=== PATIENT | female | born 1935 | race Caucasian/White ===

== ENCOUNTER → 2019-01-18 | Outpatient (CLI) | payer MEDICARE ==
[~2019-01-18] MED LIST: ATOR10TA69 PO; ESOM40CA PO; ESTR1TAB17 PO; HYDR12.54 PO; IRBE300T19 PO; LEVO88TA4 PO
== END | disposition home or self-care (01) ==
LOC: RAH 08:39
PROVIDERS: ATTEND Family Medicine
DX: K21.9 Gastro-esophageal reflux disease without esophagitis (principal)
CPT/HCPCS: 74240

== ENCOUNTER 2019-01-20 16:31 | Observation (INO) | payer MEDICARE ==
[~2019-01-20] VITALS: Ht 167.6 cm; Wt 62.1 kg
[2019-01-20 17:21] LABS: BASOPHILS % (AUTO) 0.5 % (0.0-5.0); EOSINOPHILS % (AUTO) 0.8 % (0.0-8.0); LYMPHOCYTES % (AUTO) 15.2 % (21.0-51.0); MEAN CORPUSCULAR HEMOGLOBIN 29.3 pg (27.0-33.0); MEAN CORPUSCULAR HGB CONC 34.2 g/dL (32.0-36.0); MEAN CORPUSCULAR VOLUME 85.8 fL (79-99); MONOCYTES % (AUTO) 5.1 % (3.0-13.0); NEUTROPHILS % (AUTO) 78.4 % (40.0-77.0); PLATELET COUNT (AUTO) 147 K/uL (130-400); RED BLOOD CELL COUNT(AUTO) 4.43 MIL/uL (4.00-5.50); RED CELL DISTRIBUTION WIDTH 13.9 % (11.0-15.5); WHITE BLOOD COUNT (AUTO) 6.5 K/uL (4.8-10.8)
[2019-01-20 17:35] LABS: CREATININE 1.3 mg/dL (0.5-1.5); POTASSIUM 3.1 mmol/L (3.5-5.1)
[2019-01-20 17:37] LABS: INR 1.02 (0.85-1.15); PARTIAL THROMBOPLASTIN TIME 19.8 SEC (26.3-35.5); PROTHROMBIN TIME 10.7 SEC (9.6-11.6)
[2019-01-20 17:39] LABS: ALBUMIN 4.1 g/dL (3.5-5.0); BILIRUBIN,TOTAL 0.6 mg/dL (0.2-1.0); TOTAL PROTEIN, SERUM 8.1 g/dL (6.0-8.3)
[2019-01-20 18:16] LABS: B-TYPE NATRIURETIC PEPTIDE 63 pg/mL (0-100)
[2019-01-20] MEDS ORDERED: POTASSIUM CHLORIDE 10% ELIXIR 20 MEQ/15 ML UDCUP ONE (19:04)
[2019-01-20] MEDS ORDERED: ONDANSETRON HCL 4 MG/2 ML VIAL IVP PRN (19:30)
[2019-01-20] MEDS ORDERED: ACETAMINOPHEN 325 MG TAB PO PRN (19:30)
[2019-01-20 22:08] VITALS: BP 155/77
[2019-01-20] MEDS ORDERED: ATOR10TA69 PO (22:56)
[2019-01-20] MEDS ORDERED: ESTR1TAB17 PO (22:56)
[2019-01-20] MEDS ORDERED: IRBE300T19 PO (22:56)
[2019-01-20] MEDS ORDERED: ESOM40CA PO (22:56)
[2019-01-20] MEDS ORDERED: HYDR12.54 PO (22:56)
[2019-01-20] MEDS ORDERED: LEVO88TA4 PO (22:56)
[2019-01-21] VITALS (7 sets, daily range): BP systolic 138–155; BP diastolic 62–79
[2019-01-21 03:21] LABS: BASOPHILS % (AUTO) 0.3 % (0.0-5.0); EOSINOPHILS % (AUTO) 1.2 % (0.0-8.0); HEMATOCRIT 33.5 % (36-48); LYMPHOCYTES % (AUTO) 16.9 % (21.0-51.0); MEAN CORPUSCULAR HEMOGLOBIN 29.7 pg (27.0-33.0); MEAN CORPUSCULAR HGB CONC 34.7 g/dL (32.0-36.0); MEAN CORPUSCULAR VOLUME 85.5 fL (79-99); MONOCYTES % (AUTO) 7.7 % (3.0-13.0); NEUTROPHILS % (AUTO) 73.9 % (40.0-77.0); PLATELET COUNT (AUTO) 131 K/uL (130-400); RED BLOOD CELL COUNT(AUTO) 3.92 MIL/uL (4.00-5.50); RED CELL DISTRIBUTION WIDTH 14.2 % (11.0-15.5); WHITE BLOOD COUNT (AUTO) 7.1 K/uL (4.8-10.8)
[2019-01-21 03:28] LABS: POTASSIUM 3.5 mmol/L (3.5-5.1)
[2019-01-21 03:32] LABS: BILIRUBIN,TOTAL 0.3 mg/dL (0.2-1.0); MAGNESIUM 0.9 mg/dL (1.80-2.40); PHOSPHORUS 3.5 mg/dL (2.5-4.9); TOTAL PROTEIN, SERUM 6.2 g/dL (6.0-8.3)
[2019-01-21] MEDS: LEVOTHYROXINE 88 MCG TABLET PO SCH (06:30)
[2019-01-21] MEDS ORDERED: LIDOCAINE HCL-MPF 1% 2ML VIAL IV PRN (07:00)
[2019-01-21] MEDS ORDERED: POTASSIUM CHLORIDE 20 MEQ ERTAB PO PRN (07:00)
[2019-01-21] MEDS ORDERED: POTASSIUM CHLORIDE 20MEQ/100ML 100 ML IV PRN (07:00)
[2019-01-21] MEDS ORDERED: POTASSIUM CHLORIDE 10% ELIXIR 20 MEQ/15 ML UDCUP PO PRN (07:00)
[2019-01-21] MEDS: MAGNESIUM 2GM PREMIX 50ML 50 ML IV PRN (07:04)
[2019-01-21] MEDS: ESTRADIOL 0.5 MG TABLET PO SCH (09:00)
[2019-01-21] MEDS ORDERED: HYDROCHLOROTHIAZIDE 25 MG TABLET PO SCH (09:00)
[2019-01-21] MEDS: PANTOPRAZOLE SODIUM 40 MG TABLET.DR PO SCH ×2 (09:00→20:44)
[2019-01-21] MEDS: LOSARTAN 100 MG TABLET PO SCH (09:00)
--- NOTE | 2019-01-21 12:50 | NUR ---
C.T. SCAN DONE, WITH RESULTS PENDING . . CALL LIGHT IN REACH
--- NOTE | 2019-01-21 18:44 | NUR ---
CM NOTE status clarification attempted with Gogo ZHANG. Pt to remain OBS plan for d/c tomorrow.
[2019-01-21] MEDS: SODIUM CHLORIDE 0.9% 1000ML 1,000 ML IV SCH (20:43)
--- NOTE | 2019-01-21 20:44 | NUR ---
HOME MEDICATION AT BEDSIDE PATIENT SEEN AND ASSESSED. PT DENIED ANY DYSPNEA NOR CHEST PAIN. NOR LIGHTHEADEDNESS NOR NAUSEA NOR VOMITING NOR ANY OTHER COMPLAINTS OF PAIN. PATIENT REFUSED TO TAKE HER THE MEDICATION FROM HOSPITAL, SHE SAID SHE IS GOING TO TAKE HER OWN MEDICATION AT BEDSIDE. PT TOOK ATORVASTATIN AND PROTONIX TABLET AT BEDSIDE. COMFORT MEASURES RENDERED. FALL RISK PRECAUTION ASSISTED AT ALL TIMES WHEN GETTING OUT OF BED
[2019-01-21] MEDS ORDERED: ATORVASTATIN CALCIUM 10 MG TABLET PO SCH (21:00)
[2019-01-22] VITALS: BP 141/72
[2019-01-22] MEDS ORDERED: TRAZODONE HCL 50 MG TAB PO PRN
[2019-01-22] MEDS ORDERED: TRAZODONE HCL 50 MG TAB ONE (00:06)
[2019-01-22] MEDS: SODIUM CHLORIDE 0.9% 1000ML 1,000 ML IV SCH (01:50)
[2019-01-22 04:00] VITALS: BP 125/66
[2019-01-22 06:21] LABS: HEMATOCRIT 32.5 % (36-48); MEAN CORPUSCULAR HEMOGLOBIN 29.5 pg (27.0-33.0); MEAN CORPUSCULAR HGB CONC 34.4 g/dL (32.0-36.0); MEAN CORPUSCULAR VOLUME 85.6 fL (79-99); PLATELET COUNT (AUTO) 142 K/uL (130-400); RED CELL DISTRIBUTION WIDTH 13.7 % (11.0-15.5); WHITE BLOOD COUNT (AUTO) 4.8 K/uL (4.8-10.8)
[2019-01-22 06:29] LABS: MAGNESIUM 1.5 mg/dL (1.80-2.40); POTASSIUM 4.2 mmol/L (3.5-5.1)
[2019-01-22] MEDS: LEVOTHYROXINE 88 MCG TABLET PO SCH (06:30)
[2019-01-22] MEDS: MAGNESIUM 2GM PREMIX 50ML 50 ML IV PRN (07:36)
[2019-01-22 08:00] VITALS: BP 114/53
[2019-01-22] MEDS: PANTOPRAZOLE SODIUM 40 MG TABLET.DR PO SCH (09:00)
[2019-01-22] MEDS: ESTRADIOL 0.5 MG TABLET PO SCH (09:00)
[2019-01-22] MEDS ORDERED: POLYETHYLENE GLYCOL 3350 17 GM POWD.PACK PO SCH (09:00)
[2019-01-22] MEDS ORDERED: ASPIRIN 81MG TAB.CHEW PO SCH (09:00)
[2019-01-22] MEDS: LOSARTAN 100 MG TABLET PO SCH (09:00)
[2019-01-22 12:00] VITALS: BP 131/70
[2019-01-22 12:10] VITALS: BP 159/86
--- NOTE | 2019-01-22 13:00 | NUR ---
DR. LONG HERE AND REVIEW CARE .AND SPOKE WITH PT .AND DISCHARGE ORDERS .
--- NOTE | 2019-01-22 13:27 | NUR ---
DCP CM met with pt discussed dc plans. Pt is independent prior to admission, lives at home w/spouse. Pt has a shower chair, cane. Denies any equipments/services. Feels safe to go back home, spouse able to assist with transportation and needs. DC plan to home once stable. CM to cont to follow up. Addendum: 01/22/19 at 1331 by KASH DOUGLASS LVN CM Amended: Links added.
--- NOTE | 2019-01-22 13:50 | NUR ---
DISCHARGE SUMMARY RE VIEW WITH PT. . PT SL TO HER LFA WAS DC, WITH NO HEMATOMA OR REDNESS NOTED A SM PRESSURE . DRSG APPLICATION . .
== END 2019-01-22 14:00 | disposition home or self-care (01) ==
LOC: EDH 16:31 → EDHIP 19:08 → 3DH 22:02
PROVIDERS: ADMIT Internal Medicine Critical Care Medicine; ATTEND Internal Medicine Critical Care Medicine
DX: R55 Syncope and collapse (principal); E87.6 Hypokalemia; E83.42 Hypomagnesemia; E86.0 Dehydration; I10 Essential (primary) hypertension; E03.9 Hypothyroidism, unspecified; I34.1 Nonrheumatic mitral (valve) prolapse; E05.00 Thyrotoxicosis with diffuse goiter without thyrotoxic crisis or storm; K21.9 Gastro-esophageal reflux disease without esophagitis; E89.0 Postprocedural hypothyroidism; E78.5 Hyperlipidemia, unspecified; R10.9 Unspecified abdominal pain; Z90.89 Acquired absence of other organs; E87.1 Hypo-osmolality and hyponatremia; Z79.899 Other long term (current) drug therapy; Z79.890 Hormone replacement therapy; Z88.0 Allergy status to penicillin; Z88.1 Allergy status to other antibiotic agents; Z88.8 Allergy status to other drugs, medicaments and biological substances
CPT/HCPCS: 36415 ×3; 70450; 71045; 74176; 80048; 80053 ×2; 82550; 83735 ×3; 83880; 84100; 84443; 84484 ×4; 85025 ×2; 85027; 85610; 85730; 93005; 93880; 96361 ×2; 96365; 96366 ×2; 99284; G0378 ×38; J3475 ×2

== ENCOUNTER → 2021-10-19 | Outpatient (CLI) | payer MEDICARE ==
[~2021-10-19] MED LIST changes: +IRBE300T18 PO; -IRBE300T19 PO
== END | disposition home or self-care (01) ==
LOC: SHCH 08:41
PROVIDERS: ATTEND Internal Medicine Cardiovascular Disease
DX: I08.0 Rheumatic disorders of both mitral and aortic valves (principal); I11.9 Hypertensive heart disease without heart failure
CPT/HCPCS: 93306

== ENCOUNTER → 2022-09-28 | Outpatient (CLI) | payer MEDICARE | END | disposition home or self-care (01) | LOC: SHCH 12:27 | PROVIDERS: ATTEND Internal Medicine Cardiovascular Disease | DX: I35.0 Nonrheumatic aortic (valve) stenosis (principal) | CPT/HCPCS: 93306 ==

== ENCOUNTER 2022-10-28 05:57 | Day surgery (SDC) | payer MEDICARE ==
[2022-10-26 11:31] LABS: BASOPHILS # (AUTO) 0.02 K/uL (0.00-0.20); BASOPHILS % (AUTO) 0.4 % (0.0-5.0); EOSINOPHILS # (AUTO) 0.08 K/uL (0.00-0.70); EOSINOPHILS % (AUTO) 1.7 % (0.0-8.0); HEMATOCRIT 36.3 % (36-48); IMMATURE GRANULOCYTE ABSOLUTE 0.01 K/uL (0-1); LYMPHOCYTES # (AUTO) 1.3 K/uL (1.0-4.8); LYMPHOCYTES % (AUTO) 27.4 % (21.0-51.0); MEAN CORPUSCULAR HEMOGLOBIN 28.2 pg (27.0-33.0); MEAN CORPUSCULAR VOLUME 88.3 fL (79-99); MONOCYTES # (AUTO) 0.4 K/uL (0.1-1.0); MONOCYTES % (AUTO) 7.4 % (3.0-13.0); NEUTROPHILS % (AUTO) 62.9 % (40.0-77.0); PLATELET COUNT (AUTO) 139 K/uL (130-400); RED BLOOD CELL COUNT(AUTO) 4.11 MIL/uL (4.00-5.50); RED CELL DISTRIBUTION WIDTH 13.6 % (11.0-15.5); WHITE BLOOD COUNT (AUTO) 4.7 K/uL (4.8-10.8)
[2022-10-26 11:32] LABS: APPEARANCE,URINE CLEAR (CLEAR); BILIRUBIN,URINE NEGATIVE (NEGATIVE); GLUCOSE, URINE (UA) NEGATIVE (NEGATIVE); KETONES,URINE NEGATIVE (NEGATIVE); LEUKOCYTE ESTERASE ,URINE NEGATIVE Leu/uL (NEGATIVE); NITRATE,URINE NEGATIVE (NEGATIVE); OCCULT BLOOD,URINE NEGATIVE (NEGATIVE); PH,URINE 6.5 (5.0-8.0); PROTEIN,URINE NEGATIVE (NEGATIVE); UROBILINOGEN,URINE 0.2 mg/dL (0.2-1.0)
[2022-10-26 11:34] LABS: ADD UA MICROSCOPIC NO; COLOR,URINE YELLOW (YELLOW)
[2022-10-26 11:49] LABS: CREATININE 1.2 mg/dL (0.5-1.5); INR 0.95 (0.85-1.15); POTASSIUM 4.4 mmol/L (3.5-5.1); PROTHROMBIN TIME 11.1 SEC (9.6-11.6)
[2022-10-26 11:50] VITALS: BP_SYST 187; BP_SYST 190; BP_DIAS 76; BP_DIAS 86; PULSE 66; RESP 18
[2022-10-26 11:50] LABS: PARTIAL THROMBOPLASTIN TIME 27.3 SEC (26.3-35.5)
[2022-10-26 12:05] LABS: B-TYPE NATRIURETIC PEPTIDE 119 pg/mL (0-100)
[~2022-10-28] VITALS: Ht 167.6 cm; Wt 61.2 kg
[2022-10-28] VITALS (12 sets, daily range): BP systolic 107–179; BP diastolic 49–74; PULSE 69–83; RESP 15–16
[2022-10-28] MEDS ORDERED: SPIR25TA6 PO (06:52)
[2022-10-28] MEDS ORDERED: LIDOCAINE HCL 400MG/20ML VIAL ONE (07:13)
[2022-10-28] MEDS ORDERED: BIVALIRUDIN 250 MG/VIAL IV ONE (07:13)
[2022-10-28] MEDS ORDERED: FENTANYL CITRATE PF 50 MCG/1 ML 2ML VIAL ONE (07:13)
[2022-10-28] MEDS ORDERED: MIDAZOLAM HCL 1 MG/ML 2ML VIAL ONE (07:13)
[2022-10-28] MEDS ORDERED: NITROGLYCERIN 50MG VIAL ONE (07:14)
[2022-10-28] MEDS ORDERED: IOHEXOL-350 50ML VIAL IV ONE (07:14)
[2022-10-28] MEDS ORDERED: IOHEXOL 350 MG/ML 100ML INFUS..BTL IV ONE (07:14)
[2022-10-28] MEDS ORDERED: 0.9%NACL 1000ML 1,000 ML IV ONE (07:21)
[2022-10-28] MEDS ORDERED: LABETALOL 20MG SYG IV ONE (08:14)
[2022-10-28] MEDS ORDERED: HYDRALAZINE 20MG/ML VIAL ONE (08:14)
[2022-10-28] MEDS ORDERED: IOHEXOL-350 75 ML VIAL IV ONE (08:55)
[2022-10-28] MEDS ORDERED: 0.9%NACL 1000ML 1,000 ML IV SCH (09:30)
== END 2022-10-28 15:00 | disposition home or self-care (01) ==
LOC: DAH 05:57
PROVIDERS: ATTEND Internal Medicine Cardiovascular Disease
DX: I35.0 Nonrheumatic aortic (valve) stenosis (principal); I25.10 Atherosclerotic heart disease of native coronary artery without angina pectoris; I27.20 Pulmonary hypertension, unspecified; I47.1 Supraventricular tachycardia; I11.0 Hypertensive heart disease with heart failure; I50.32 Chronic diastolic (congestive) heart failure; E78.5 Hyperlipidemia, unspecified; Z79.890 Hormone replacement therapy; Z79.899 Other long term (current) drug therapy; Z96.651 Presence of right artificial knee joint; Z88.8 Allergy status to other drugs, medicaments and biological substances
CPT/HCPCS: 80048; 83880; 85025; 85610; 85730; 81003; 36415; 71045; 93005; 93460; C1769; C1894 ×3; C1760; C1893; J3010; J3490 ×2; J7030; J0360; J2250; J1644; Q9967 ×3; A4222; A4221; A4663; A4216; A4606; Q9965; A4223 ×3; 99156; 99157; J0583

== ENCOUNTER → 2023-01-06 | Outpatient (CLI) | payer MEDICARE ==
[~2023-01-06] MED LIST changes: +AEC81 PO; -ATOR10TA69 PO; -ESOM40CA PO; -ESTR1TAB17 PO; -HYDR12.54 PO; +SPIR25TA6 PO
[2023-01-06 16:20] LABS: BASOPHILS # (AUTO) 0.08 K/uL (0.00-0.20); BASOPHILS % (AUTO) 1.2 % (0.0-5.0); EOSINOPHILS # (AUTO) 0.46 K/uL (0.00-0.70); EOSINOPHILS % (AUTO) 6.8 % (0.0-8.0); HEMATOCRIT 37.5 % (36-48); IMMATURE GRANULOCYTE ABSOLUTE 0.03 K/uL (0-1); LYMPHOCYTES # (AUTO) 1.8 K/uL (1.0-4.8); LYMPHOCYTES % (AUTO) 26.8 % (21.0-51.0); MEAN CORPUSCULAR HEMOGLOBIN 28.2 pg (27.0-33.0); MEAN CORPUSCULAR HGB CONC 30.9 g/dL (32.0-36.0); MONOCYTES # (AUTO) 0.5 K/uL (0.1-1.0); MONOCYTES % (AUTO) 7.5 % (3.0-13.0); NEUTROPHILS # (AUTO) 3.9 K/uL (1.8-7.7); NEUTROPHILS % (AUTO) 57.3 % (40.0-77.0); PLATELET COUNT (AUTO) 199 K/uL (130-400); RED BLOOD CELL COUNT(AUTO) 4.12 MIL/uL (4.00-5.50); RED CELL DISTRIBUTION WIDTH 15.7 % (11.0-15.5); WHITE BLOOD COUNT (AUTO) 6.8 K/uL (4.8-10.8)
[2023-01-06 16:47] LABS: ALBUMIN 3.5 g/dL (3.5-5.0); BILIRUBIN,TOTAL 0.7 mg/dL (0.2-1.0); CREATININE 2.1 mg/dL (0.5-1.5); POTASSIUM 5.3 mmol/L (3.5-5.1); TOTAL PROTEIN, SERUM 8.1 g/dL (6.0-8.3)
== END | disposition home or self-care (01) ==
LOC: LAB 13:02
PROVIDERS: ATTEND Nurse Practitioner Acute Care
DX: D64.9 Anemia, unspecified (principal)
CPT/HCPCS: 36415; 80053; 85025

== ENCOUNTER → 2023-02-04 | Outpatient (CLI) | payer MEDICARE ==
[2023-02-04 15:29] LABS: CREATININE 1.2 mg/dL (0.5-1.5); POTASSIUM 5.3 mmol/L (3.5-5.1)
== END | disposition home or self-care (01) ==
LOC: LAB 13:26
PROVIDERS: ATTEND Nurse Practitioner Acute Care
DX: I25.10 Atherosclerotic heart disease of native coronary artery without angina pectoris (principal); I10 Essential (primary) hypertension
CPT/HCPCS: 36415; 80048